=== PATIENT | male | born 2005 | race Two or more races ===

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

== ENCOUNTER 2024-04-07 07:56 | Emergency (ER) | payer MEDICAID ==
[~2024-04-07] VITALS: Ht 167.6 cm; Wt 82.9 kg
[2024-04-07 08:24] VITALS: BP 134/76; PULSE 88; RESP 16; TEMP 97; O2SAT 100
[2024-04-07] MEDS ORDERED: CEPH500C PO (08:58)
== END 2024-04-07 09:02 | disposition home or self-care (01) ==
LOC: ER 07:56
DX: S61.234A Puncture wound without foreign body of right ring finger without damage to nail, initial encounter (principal); F41.9 Anxiety disorder, unspecified; Z87.821 Personal history of retained foreign body fully removed; Z79.899 Other long term (current) drug therapy; W22.8XXA Striking against or struck by other objects, initial encounter; Y93.89 Activity, other specified; Y92.89 Other specified places as the place of occurrence of the external cause; Y99.8 Other external cause status
CPT/HCPCS: 73140